=== PATIENT | male | born 1960 | race Caucasian/White ===

== ENCOUNTER 2025-05-10 12:00 | Day surgery (SDC) | payer BC, SELFPAY ==
[2025-05-09 09:09] VITALS: BMI 29.5
[2025-05-10] VITALS (9 sets, daily range): BP systolic 116–159; BP diastolic 73–109; PULSE 56–78; RESP 18–19; TEMP 36.2–36.4; O2SAT 97–99; BMI 28.8
[2025-05-10] MEDS: MIDAZOLAM INJ 1 MG/ML VIAL 2 ML (ASD USE ONLY) 2 MG IVP (13:16)
[2025-05-10] MEDS: fentaNYL CIT INJ 50 mCg/ML AMP 2ML (ASD USE ONLY) IVP (13:16)
[2025-05-10] MEDS: RINGERS LACTATED 1000 ML 1,000 ML 125 ML IV (13:16)
== END 2025-05-10 13:55 | disposition home or self-care (01) ==
PROVIDERS: Referring Provider Surgery; Visit Provider Surgery
PROC: 0DBE8ZX Excision of Large Intestine, Via Natural or Artificial Opening Endoscopic, Diagnostic (ICD-10-PCS; CPT 45380; principal; 2025-05-10 13:00)
DX: Z12.11 Encounter for screening for malignant neoplasm of colon (principal); K57.30 Diverticulosis of large intestine without perforation or abscess without bleeding; E11.9 Type 2 diabetes mellitus without complications
CPT/HCPCS: 45378; A4649; J2250; J3010; J7120